=== PATIENT | male | born 1985 | race Caucasian/White ===

== ENCOUNTER 2023-02-20 09:29 | Outpatient (CLI) | payer OTHER ==
--- NOTE | 2023-02-20 10:34 | SLEEP CARE CONSULTATION ---
Information from patient questionnaire entered by Maury Ross. I have reviewed and concur with the information entered by Maury Ross. This document represents the service I personally performed and the decisions made by me, Laurie Posada ARNP. History of Present Illness Service Date and Time: 02/20/2023928 Reason for Visit: New patient Chief Complaint: reports: Insomnia, Unrefreshed sleep, Excessive daytime sleepiness Date of Onset: 2018 Usual bedtime: 2230 Time it takes to fall asleep: 2-3HRS Snores at night: Yes Observed to quit breathing while asleep: No Sleeps alone due to snoring: No Number of times waking at night: 2-3 Reasons for waking at night: reports: Snoring, Other (UNKNOWN). denies: Choking, Gasping for air Toss, Turn, or Twitch while sleeping: Yes Recalls having dreams: No (remembers 1-2 dreams a year) Usually gets out of bed at: [id number] Feels refreshed in the morning: No Morning headache: No Sleepy or fatigued during the day: Yes Ever fallen asleep while driving: No Takes day naps: Yes (varies; 1-2 times a week for 30 minutes to 2 hours) Dreams during day naps: No Prior sleep studies: No Additional HPI information: I had the pleasure of seeing CLARISSA FLETCHER today regarding the possibility of him having a sleep disorder. His current complaints are excessive daytime sleepiness, insomnia and unrefreshed sleep. He states that he has not slept well for years. He has a hard time falling asleep, staying asleep during the night and he wakes up feeling tired. He states sometimes he can go back to sleep after a wakeup quickly, other times it takes about 30 minutes to an hour. - Parasomnia Symptoms Ever been unable to move upon waking from sleep: No Walks in sleep: No Talks in sleep: Yes Ever acted out dreams in sleep: Yes (occasional; has hit out and hit ; woke up punching something on deploym) Ever felt weak in the knees when startled or emotional: No Bothered by creepy, crawly, restless sensations in legs: No Problems with memory or concentration: No Subjective Initial [place] Sleepiness Scale score: 16 (02/20/23) Past Medical History Past Medical History: reports: Anxiety, Depression Social History The patient's occupation is a AM. Patient is and lives in [place]. Have you smoked in the past 12 months: Yes Cigarettes per day (20/pack): 2 Years of smokin Quit date: 07/2022 Smoking Pack Years: 1.9 Alcohol use: Yes Alcohol amount and frequency: 1-2 OCASSIONALLY Caffeine use: Yes Caffeine amount and frequency: 2 "Yeti" cups DAILY Family History Family history of sleep disordered breathing: Yes Family Hx Sleep Apnea: Mother: Snoring, Grandparent: Snoring Allergies and Home Medications Known drug allergies: No Drug allergies reviewed: Yes Home medication list reviewed: Yes Allergy and home medication list: Medications: Escitalopram 30 mg daily Bupropion 300 mg daily Trazodone 100 mg, prn Hydroxyzine 25 mg up to 4 x daily, prn panic attacks Ibuprofen, prn Review of Systems Weight gain over past 5 years: 20 Cardiovascular: denies: high blood pressure Gastrointestinal: denies: heartburn Neurological: denies: headaches Psychiatric: reports: anxiety, depression Ear/Nose/Throat: reports: nasal congestion, sinus problems, wisdom teeth removed. denies: tonsillectomy Endocrine: reports: sluggishness, excessive thirst Musculoskeletal: reports: joint pain, neck pain, back pain, muscle pain or cramping Immunologic: reports: sneezing, allergies to food or environment Physical Exam Vital signs obtained and entered by: MAURY Bullock MA Blood Pressure: 118/64 (LEFT ARM) Cuff size: regular Heart Rate: 77 O2 Saturation: 98 Height: 5 ft 10 in Weight: 225 lb 9.6 oz Body Mass Index: 32.3 BMI Classification: Obese Neck circumference: 16.5 Mouth and throat: narrow oropharynx Soft palate: long Hard palate: normal Uvula: normal Uvula visualization: 25% Mallampati Class III Tongue: normal in size Tonsils: 1+ Neck: normal w/o lymphadenopathy or thyromegaly Heart: regular rate and rhythm Lungs: clear bilaterally Impression and Plan 1. Suspected Obstructive Sleep Apnea-Hypopnea Syndrome, as suggested by a history of loud and irregular snoring, frequent awakening during the night, unrefreshed sleep, and excessive daytime sleepiness. Narrow oropharynx and obesity are common predisposing factors for obstructive sleep apnea-hypopnea syndrome. I recommend proceeding to polysomnography to confirm the diagnosis and to assess severity. If the patient has significant sleep disordered breathing, a manual CPAP titration study will also be performed to find the optimal treatment pressure. I informed the patient of what the sleep studies involve and after some discussion, obtained agreement to proceed. The pathophysiology of obstructive sleep apnea-hypopnea syndrome was discussed with the patient and health risks of cardiovascular and cerebrovascular disease if not treated. Risks of drowsy driving discussed in detail and patient advised to avoid long distance driving and to side puller at the first sign of drowsiness. Patient agreed to plan. * Schedule polysomnography +- manual CPAP titration study and return in 1-2 weeks after the study to discuss result and initiate therapy. * Avoid long distance driving or driving when feeling sleepy. * Avoid alcohol, sedative and muscle relaxant around bedtime. * Attempt to lose weight. * Review instructions provided by trained office staff on how to prepare for the sleep study. * Return for follow-up after sleep study completed. Counseling Topics: Weight loss health impact Visit Type: In Office Time Spent with Patient (minutes): 34 Provider Statement: I spent 100% of the Face to Face Visit with the patient with greater than 50% spent counseling the patient and coordination of care.
[2023-02-20 10:36] VITALS: BP 118/64
== END 2023-02-20 09:30 | disposition home or self-care (01) ==
LOC: SC 09:29
PROVIDERS: ATTEND Nurse Practitioner Family
DX: R06.83 Snoring (principal); G47.8 Other sleep disorders; G47.10 Hypersomnia, unspecified; Z87.891 Personal history of nicotine dependence; E66.9 Obesity, unspecified; Z68.32 Body mass index [BMI] 32.0-32.9, adult
CPT/HCPCS: 99203; 99212

== ENCOUNTER 2023-04-11 19:36 | Outpatient (CLI) | payer OTHER | END 2023-04-11 19:37 | disposition home or self-care (01) | LOC: SC 19:36 | PROVIDERS: ATTEND Nurse Practitioner Family | DX: G47.31 Primary central sleep apnea (principal) | CPT/HCPCS: 95810 ==

== ENCOUNTER 2023-05-07 14:08 | Outpatient (CLI) | payer OTHER ==
--- NOTE | 2023-05-07 14:47 | Sleep Patient Instructions ---
Sleep Center Visit Summary - Patient Visit Information Reason for Visit: Sleep study follow-up - Patient Instructions Additional Instructions: You will be completing a titration sleep study in our sleep lab where you will be sleeping with the CPAP machine on and we will be adjusting your pressures to find your optimal pressure settings. Once we have your results back, we will call you and schedule a follow up to go over the results. You will be called by our office staff to schedule your follow up, but you may contact us with any questions or issue as needed. - Clinic Information Contact: [facility] [address] [place] [address] [email or web address] T: [phone]
--- NOTE | 2023-05-07 14:55 | SLEEP CARE CONSULTATION ---
Information from patient questionnaire entered by Nena Ross. I have reviewed and concur with the information entered by Nena Ross. This document represents the service I personally performed and the decisions made by , Laurie Posada ARNP. History of Present Illness Service Date and Time: 05/07/2023 1408 Initial [place] Sleepiness Scale score: 16 (02/20/23) Current [place] Sleepiness Scale score: 8 (05/07/23) Additional HPI information: CLARISSA FLETCHER returns for follow up and results of the recently performed polysomnography. His sleep study showed moderate central sleep apnea with an average AHI of 26.1 and juventino oxygen saturation of 87%. I explained the pathophysiology behind obstructive sleep apnea. We then spent quite a bit of time discussing different treatment options. For mild obstructive sleep apnea, surgery and oral appliance are alternatives to nasal CPAP therapy but in moderate or severe cases, nasal CPAP is the most effective and reliable treatment. Patient counseled not drink alcohol less than 4 hours before bedtime as it can increase snoring and apnea. Patient was cautioned about risks of drowsy driving until sleepiness symptoms resolve. Patient denies drowsy driving. Sleep Study - Results Type of Sleep Study: Polysomnography (COMPLETED 04/11/23) Prior sleep studies: No Polysomnography/Home Sleep Study results: IMPRESSION: The quality of the study is good. The patient had slightly reduced sleep efficiency. The sleep architecture was abnormal for sleep fragmentation and lack of REM sleep. Respiratory monitoring showed moderate central sleep apnea-hypopnea (AHI = 26.1) associated with frequent arousals, oxyhemoglobin desaturation and mild hypoxia (juventino oxygen saturation of 87%). The respiratory events occurred predominantly during supine sleep (supine AHI = 42.6; non-supine = 17.57). Snore was light to moderate in intensity. There was no significant periodic leg movement of sleep. Cardiac rhythm was normal sinus rhythm without significant arrhythmia. No abnormal behavior (parasomnia) observed during the night. Allergies and Home Medications Known drug allergies: No Drug allergies reviewed: Yes Home medication list reviewed: Yes (no changes) Allergy and home medication list: Allergies No Known Drug Allergies Allergy (Verified 05/03/23 10:00) Review of Systems Review of systems same as previous: Yes (no changes) Physical Exam Vital signs obtained and entered by: NENA Bullock MA Blood Pressure: 110/70 (LEFT ARM) Cuff size: regular Heart Rate: 90 O2 Saturation: 99 Height: 5 ft 10 in Weight: 223 lb Body Mass Index: 32.0 BMI Classification: Obese Impression and Plan 1. Central Sleep Apnea-Hypopnea Syndrome, moderate, with lowest oxygen saturation of 87%. Obviously this is the cause of the patients symptoms of unrefreshed sleep, and excessive daytime sleepiness. Positive pressure therapy could benefit anxiety and depression. As mentioned above, the patient will return for a manual titration study to find optimal treatment pressure. Compliance guidelines also reviewed. A copy of compliance guidelines will be given for reference at check out. Because the apnea is more severe supine, I instructed to avoid sleeping supine using pillow positioning until able to start CPAP use. 2. Hypoxemia, mild, with a juventino oxygen saturation of 87% and 0.2 minutes spent under 90%. His baseline oxygen saturation was normal with an average oxygen saturation of 94%. * Titration study * Attempt to lose weight. * Avoid alcohol consumption near bedtime. * Avoid supine sleep * The patient is again cautioned about driving until sleepiness completely resolves. * Return after titration study is completed. Counseling Topics: Weight loss health impact Plan: Titration study for CSA Visit Type: In Office Time Spent with Patient (minutes): 20 Provider Statement: I spent 100% of the Face to Face Visit with the patient with greater than 50% spent counseling the patient and coordination of care.
[2023-05-07 14:58] VITALS: BP 110/70; O2SAT 99
== END 2023-05-07 14:09 | disposition home or self-care (01) ==
LOC: SC 14:08
PROVIDERS: ATTEND Nurse Practitioner Family
DX: G47.31 Primary central sleep apnea (principal); R09.02 Hypoxemia
CPT/HCPCS: 99212; 99213

== ENCOUNTER 2023-05-08 20:38 | Outpatient (CLI) | payer OTHER | END 2023-05-08 20:39 | disposition home or self-care (01) | LOC: SC 20:38 | PROVIDERS: ATTEND Nurse Practitioner Family | DX: G47.33 Obstructive sleep apnea (adult) (pediatric) (principal); Z68.32 Body mass index [BMI] 32.0-32.9, adult | CPT/HCPCS: 95811 ==

== ENCOUNTER 2023-05-16 08:22 | Outpatient (CLI) | payer OTHER ==
--- NOTE | 2023-05-16 08:46 | Sleep Patient Instructions ---
Sleep Center Visit Summary - Patient Visit Information Reason for Visit: Titration study follow-up - Patient Instructions Instructions Attached: CPAP Dc, CPAP Additional Instructions: You are being started on CPAP therapy with pressure setting at 5-10 cmH2O. You will need to call the sleep care office to set up your follow up once you have your APAP machine and we will schedule a visit to check compliance and response to therapy at that time. You may call the office with any concerns about pressure feeling too low or too much for adjustment, if needed. You should contact DME supplier for any questions or concerns about mask or equipment. Please call office to schedule a follow up appointment in the sleep care office one month after obtaining new device. - Clinic Information Contact: [facility] [address] [place] [address] [email or web address] T: [phone]
--- NOTE | 2023-05-16 08:48 | SLEEP CARE CONSULTATION ---
Information from patient questionnaire entered by Maury Ross. I have reviewed and concur with the information entered by Maury Ross. This document represents the service I personally performed and the decisions made by , Laurie Posada ARNP. History of Present Illness Service Date and Time: 05/16/2023 08 Initial [place] Sleepiness Scale score: 16 (02/20/23) Current [place] Sleepiness Scale score: 11 (05/16/23) Additional HPI information: CLARISSA FLETCHER returns for follow up of the sleep study with a manual CPAP titration study performed on 05/08/2023. The patient was informed of the following polysomnography findings: CPAP was initiated at 5 cmH2O and titrated up to CPAP at 14 cmH2O. CPAP at 8 cmH2O appeared to be optimal (AHI of 0 per hour on the pressure). There was supine REM sleep on the pressure. Oxygen saturation was normal throughout the night. Lower CPAP settings appeared adequate as well. The patient appeared to have tolerated positive airway pressure therapy fairly well. Sleep Study - Results Type of Sleep Study: Polysomnography (COMPLETED 04/11/23 TITRATION STUDY 05/08/23) Prior sleep studies: No Polysomnography/Home Sleep Study results: IMPRESSION: The quality of the study is good. CPAP was initiated at 5 cmH2O and titrated up to CPAP at 14 cmH2O. CPAP at 8 cmH2O appeared to be optimal (AHI of 0 per hour on the pressure). There was supine REM sleep on the pressure. Oxygen saturation was normal throughout the night. Lower CPAP settings appeared adequate as well. The patient appeared to have tolerated positive airway pressure therapy fairly well. The patients sleep efficiency was slightly reduced due to a prolonged awakening in the middle of the night. The sleep architecture was normal. There was no periodic leg movement of sleep. Cardiac rhythm was normal sinus rhythm without significant arrhythmia. No abnormal behavior (parasomnia) observed during the night. Allergies and Home Medications Known drug allergies: No Drug allergies reviewed: Yes Home medication list reviewed: Yes (no changes) Allergy and home medication list: Allergies No Known Drug Allergies Allergy (Verified 05/07/23 14:17) Review of Systems Review of systems same as previous: Yes (no changes) Physical Exam Vital signs obtained and entered by: MAURY Bullock MA Blood Pressure: 128/70 (LEFT ARM) Cuff size: regular Heart Rate: 77 O2 Saturation: 98 Height: 5 ft 10 in Weight: 224 lb 6.4 oz Body Mass Index: 32.1 BMI Classification: Obese Impression and Plan 1. Central Sleep Apnea-Hypopnea Syndrome, moderate. He returns to the office after completing titration study which showed optimal pressure to control his sleep apnea was 8 cmH2O. It was also noted that he tolerated the CPAP pressure well. Positive airway pressure can benefit his anxiety and depression. The patient will be started on nasal autoCPAP therapy with pressure set at 5-10 cmH2 O. Compliance guidelines also reviewed. A copy of compliance guidelines will be given for reference at check out. Because the apnea is more severe supine, I instructed to avoid sleeping supine using pillow positioning until able to start CPAP use. 2. Obesity, unspecified. Currently patients BMI is 32.1. Obesity increases the risk of apnea, CPAP pressure requirements and overall health risks especially cardiovascular and diabetes. Thus patient is advised to lose weight. * Nasal auto CPAP therapy, pressure at 5-10 cm H2O. * Attempt to lose weight. * Avoid alcohol consumption near bedtime. * Avoid supine sleep until using CPAP. * The patient is again cautioned about driving until sleepiness completely resolves. * Return one month after CPAP obtained. I will assess response to therapy and compliance at that time. Counseling Topics: Weight loss health impact Prescriptions: Auto CPAP Visit Type: In Office Time Spent with Patient (minutes): 15 Provider Statement: I spent 100% of the Face to Face Visit with the patient with greater than 50% spent counseling the patient and coordination of care.
[2023-05-16 08:56] VITALS: BP 128/70; O2SAT 98
== END 2023-05-16 08:23 | disposition home or self-care (01) ==
LOC: SC 08:22
PROVIDERS: ATTEND Nurse Practitioner Family
DX: G47.31 Primary central sleep apnea (principal); E66.9 Obesity, unspecified; Z68.32 Body mass index [BMI] 32.0-32.9, adult
CPT/HCPCS: 99212

== ENCOUNTER 2023-07-05 13:11 | Outpatient (CLI) | payer OTHER ==
--- NOTE | 2023-07-05 13:54 | Sleep Patient Instructions ---
Sleep Center Visit Summary - Patient Visit Information Reason for Visit: First Compliance Followup - Patient Instructions Additional Instructions: You were here for follow up of CPAP therapy. You will be continued on CPAP therapy with pressure at 12-14 cmH2O. Please let us know if the pressure change is uncomfortable and we can make further adjustments of the pressure. You should follow up with sleep care in 1-2 months. You may contact us sooner for any questions or concerns. - Clinic Information Contact: [facility] [address] [place] [id number] [email or web address] T: [phone]
--- NOTE | 2023-07-05 13:57 | SLEEP CARE CONSULTATION ---
Information from patient questionnaire entered by Maury Ross. I have reviewed and concur with the information entered by Maury Ross. This document represents the service I personally performed and the decisions made by , Laurie Posada ARNP. History of Present Illness Service Date and Time: 07/05/2023 1311 Previous diagnosis: Moderate, Central Sleep Apnea-Hypopnea Syndrome AHI: 26.1 (04/2023) Reason for follow up: first compliance Accompanied by: Spouse Equipment type: CPAP (RESMED Airsense 10, s/u 05/2023) Equipment obtained from: Other ([facility]) Mask style: Nasal pillows Mask brand: [employer] ([employer]) Backup mask available: No Last cushion change: last week, rotate between 2 cushions Prior sleep studies: No Type of Sleep Study: Polysomnography (COMPLETED 04/11/23 TITRATION STUDY 05/08/23) HPI additional information: CLARISSA FLETCHER was diagnosed to have moderate, AHI 26.1, central sleep apnea- hypopnea syndrome and returned today for CPAP therapy first compliance follow- up. Sleep Study - Results Type of Sleep Study: Polysomnography (COMPLETED 04/11/23 TITRATION STUDY 05/08/23) Prior sleep studies: No CPAP Compliance Data - Data Reviewed with Patient Average duration of nightly device use: 7 HRS 5 MINS Compliance rate %: 96 (06/04/23-06/27/23; days used) Current pressure setting (cmH2O): 8-14 (avg 11.1, max 11.7) Average residual AHI: 11.9 Central apnea: 10.6 Obstructive apnea: 0.5 Hypopnea: 0.1 Average large leak: 2.3 L/min Subjective Patient concerns: reports: condensation in mask/hose, nasal congestion (occasional, may be seasonal), other (removing mask while sleeping). denies: aerophagia, mask discomfort, air blowing in eyes, mask leak noise, dry mouth, nose, throat, epistaxis Observed to snore while using device: Yes (sometimes) Current pressure setting perceived as: too low (when on his stomach, at beginning of night) On therapy, patient: reports: sleeping better, more rested overall. denies: drowsiness while driving Initial [place] Sleepiness Scale score: 16 (02/20/23) Current [place] Sleepiness Scale score: 13 (11/03/23) Allergies and Home Medications Known drug allergies: No Drug allergies reviewed: Yes Home medication list reviewed: Yes (no changes) Allergy and home medication list: Allergies No Known Drug Allergies Allergy (Verified 07/04/23 13:25) Review of Systems Review of systems same as previous: Yes (NO CHANGE) Physical Exam Vital signs obtained and entered by: MAURY Bullock MA Blood Pressure: 142/90 (LEFT ARM) Cuff size: regular Heart Rate: 99 O2 Saturation: 99 Height: 5 ft 10 in Weight: 226 lb 3.2 oz Body Mass Index: 32.4 BMI Classification: Obese Impression and Plan 1. Central Sleep Apnea-Hypopnea Syndrome, moderate, with good treatment compliance and fair apnea control. On CPAP therapy, the patient has better sleep quality and is more rested overall. His pressure should have been changed at his last visit but it is at a different pressure than prescribed. The patients pressure will be changed to autoCPAP 12-14 cmH20 for elevation of residual AHI. Patient advised to contact me if pressure change is uncomfortable so that it can be adjusted. Goals for apnea control discussed. Patient's apnea severity and rationale for treatment to reduce apnea, improve sleep quality and reduce cardiovascular and cerebrovascular events was reviewed. 2. Obesity, unspecified. Currently patients BMI is 32.4. Obesity increases the risk of apnea, CPAP pressure requirements and overall health risks especially cardiovascular and diabetes. Thus patient is advised to lose weight. * Change auto CPAP pressure to 12-14 cmH2O * Notify me if snoring with mask or feeling that the pressure is too much or too little * Attempt to lose weight * Call this office if any problems using CPAP * Return for follow up in 1-2 months, or sooner if concerns arise Counseling Topics: Spare mask, Weight loss health impact Follow up with Sleep Care in: 1-2 months Visit Type: In Office Time Spent with Patient (minutes): 36 Provider Statement: I spent 100% of the Face to Face Visit with the patient with greater than 50% spent counseling the patient and coordination of care.
[2023-07-05 13:58] VITALS: BP 142/90; O2SAT 99
== END 2023-07-05 13:12 | disposition home or self-care (01) ==
LOC: SC 13:11
PROVIDERS: ATTEND Nurse Practitioner Family
DX: G47.31 Primary central sleep apnea (principal); E66.9 Obesity, unspecified; Z68.32 Body mass index [BMI] 32.0-32.9, adult
CPT/HCPCS: 99212; 99214

== ENCOUNTER 2023-08-15 13:54 | Outpatient (CLI) | payer OTHER ==
--- NOTE | 2023-08-15 14:20 | Sleep Patient Instructions ---
Sleep Center Visit Summary - Patient Visit Information Reason for Visit: 1 month followup - Patient Instructions Additional Instructions: You were here for follow up of CPAP therapy. You will be continued on CPAP therapy with pressure at 8-10 cmH2O. Please let us know if the pressure change is uncomfortable and we can make further adjustments of the pressure. You should follow up with sleep care in 1-2 months. You may contact us sooner for any questions or concerns. - Clinic Information Contact: [facility] [address] [place] [id number] [email or web address] T: [phone]
--- NOTE | 2023-08-15 14:32 | SLEEP CARE CONSULTATION ---
Information from patient questionnaire entered by Maury Ross. I have reviewed and concur with the information entered by Maury Ross. This document represents the service I personally performed and the decisions made by , Laurie Posada ARNP. History of Present Illness Service Date and Time: 08/15/2023 1354 Previous diagnosis: Moderate, Central Sleep Apnea-Hypopnea Syndrome AHI: 26.1 (04/2023) Reason for follow up: one month (F/U) Equipment type: CPAP (RESMED Airsense 10, s/u 05/2023) Equipment obtained from: Other ([facility]; getting supplies) Mask style: Nasal pillows Mask brand: [employer] (Brevida, small cushion) Backup mask available: No Prior sleep studies: No Type of Sleep Study: Polysomnography (COMPLETED 04/11/23 TITRATION STUDY 05/08/23) HPI additional information: CLARISSA FLETCHER was diagnosed to have moderate, AHI 26.1, central sleep apnea- hypopnea syndrome and returned today for CPAP therapy one month follow-up. Sleep Study - Results Type of Sleep Study: Polysomnography (COMPLETED 04/11/23 TITRATION STUDY 05/08/23) Prior sleep studies: No CPAP Compliance Data - Data Reviewed with Patient Average duration of nightly device use: 8 HRS 0 MINS Compliance rate %: 97 (07/14/23-08/12/23; 30/30 days used) Current pressure setting (cmH2O): 12-14 (avg 12.9, max 13.3) Average residual AHI: 16.3 Central apnea: 14.2 Obstructive apnea: 0.5 Hypopnea: 0.3 Average large leak: 5.2 L/min Subjective Patient concerns: reports: mask leak noise, condensation in mask/hose, nasal congestion, other (headache, not just with CPAP). denies: aerophagia, mask discomfort, air blowing in eyes, dry mouth, nose, throat, epistaxis Observed to snore while using device: No Current pressure setting perceived as: comfortable On therapy, patient: reports: sleeping better (sometimes), more rested overall (sometimes). denies: drowsiness while driving Initial [place] Sleepiness Scale score: 16 (02/20/23) Current [place] Sleepiness Scale score: 13 (08/15/23) Allergies and Home Medications Known drug allergies: No Drug allergies reviewed: Yes Home medication list reviewed: Yes (no changes) Allergy and home medication list: Allergies No Known Drug Allergies Allergy (Verified 08/14/23 10:33) Review of Systems Review of systems same as previous: Yes (no changes) Physical Exam Vital signs obtained and entered by: MAURY Bullock MA Blood Pressure: 134/71 (LEFT ARM) Cuff size: regular Heart Rate: 107 O2 Saturation: 97 Height: 5 ft 10 in Weight: 231 lb 6.4 oz Body Mass Index: 33.2 BMI Classification: Obese Impression and Plan 1. Central Sleep Apnea-Hypopnea Syndrome, moderate, with good treatment compliance and fair apnea control. On CPAP therapy, the patient has better sleep quality and is more rested overall. He says his mask will leak where the mask hose connects to the tubing. I supplied him with a Nuance Pro nasal pillows mask to try. His AHI is improved but he is still having a high central index. The patients pressure will be changed to autoCPAP 8-10 cmH20 for elevation of residual AHI. Patient advised to contact me if pressure change is uncomfortable so that it can be adjusted. Goals for apnea control discussed. Patient's apnea severity and rationale for treatment to reduce apnea, improve sleep quality and reduce cardiovascular and cerebrovascular events was reviewed. 2. Obesity, unspecified. Currently patients BMI is 33.2. Obesity increases the risk of apnea, CPAP pressure requirements and overall health risks especially cardiovascular and diabetes. Thus patient is advised to lose weight. * Change auto CPAP pressure to 8-10 cmH2O * Notify me if snoring with mask or feeling that the pressure is too much or too little * Attempt to lose weight * Call this office if any problems using CPAP * Return for follow up in 1-2 months, or sooner if concerns arise Counseling Topics: Spare mask, Weight loss health impact Follow up with Sleep Care in: 1-2 months Visit Type: In Office Time Spent with Patient (minutes): 21 Provider Statement: I spent 100% of the Face to Face Visit with the patient with greater than 50% spent counseling the patient and coordination of care.
[2023-08-15 14:38] VITALS: BP 134/71; O2SAT 97
== END 2023-08-15 13:55 | disposition home or self-care (01) ==
LOC: SC 13:54
PROVIDERS: ATTEND Nurse Practitioner Family
DX: G47.31 Primary central sleep apnea (principal); E66.9 Obesity, unspecified; Z68.33 Body mass index [BMI] 33.0-33.9, adult
CPT/HCPCS: 99212; 99213

== ENCOUNTER 2023-09-24 13:55 | Outpatient (CLI) | payer OTHER ==
--- NOTE | 2023-09-24 14:23 | Sleep Patient Instructions ---
Sleep Center Visit Summary - Patient Visit Information Reason for Visit: 1 month follow-up for PAP therapy - Patient Instructions Additional Instructions: You were here for follow up of CPAP therapy. You will be continued on CPAP therapy with pressure at 8 cmH2O. Please let us know if the pressure change is uncomfortable and we can make further adjustments of the pressure. You should follow up with sleep care in 3 months. You may contact us sooner for any questions or concerns. - Clinic Information Contact: [facility] [address] [place] [id number] [email or web address] T: [phone]
--- NOTE | 2023-09-24 14:27 | SLEEP CARE CONSULTATION ---
Information from patient questionnaire entered by Maury Ross. I have reviewed and concur with the information entered by Maury Ross. This document represents the service I personally performed and the decisions made by me, Laurie Posada ARNP. History of Present Illness Service Date and Time: 09/24/2023 1355 Previous diagnosis: Moderate, Central Sleep Apnea-Hypopnea Syndrome AHI: 26.1 (04/2023) Reason for follow up: one month (F/U) Equipment type: CPAP (RESMED Airsense 10, s/u 05/2023) Equipment obtained from: Other ([facility]; [employer]) Mask style: Nasal pillows Mask brand: [employer] (Brevida, ex sm/small cushion) Backup mask available: Yes (other mask) Last cushion change: Saturday, rotating thru 2 cushions Prior sleep studies: No Type of Sleep Study: Polysomnography (COMPLETED 04/11/23 TITRATION STUDY 05/08/23) HPI additional information: CLARISSA FLETCHER was diagnosed to have moderate, AHI 26.1, central sleep apnea- hypopnea syndrome and returned today for CPAP therapy one month with pressure change follow-up. Sleep Study - Results Type of Sleep Study: Polysomnography (COMPLETED 04/11/23 TITRATION STUDY 0 05/08/23) Prior sleep studies: No CPAP Compliance Data - Data Reviewed with Patient Average duration of nightly device use: 6 HRS 38 MINS Compliance rate %: 93 (08/21/23-09/19/23; 30/30 days used) Current pressure setting (cmH2O): 8-10 (avg 9.7, max 9.9) Average residual AHI: 9.9 Central apnea: 8.1 Obstructive apnea: 0.8 Average large leak: 2.8 L/min Subjective Patient concerns: reports: nasal congestion (for past 2 weeks, but improved), other (headaches when he sleeps longer). denies: aerophagia, mask discomfort, air blowing in eyes, mask leak noise, condensation in mask/hose, dry mouth, nose, throat, epistaxis Observed to snore while using device: No Current pressure setting perceived as: comfortable On therapy, patient: reports: sleeping better, awakening more refreshed, being more awake and alert during the day, more rested overall. denies: drowsiness while driving Initial [place] Sleepiness Scale score: 16 (02/20/23) Current [place] Sleepiness Scale score: 9 (09/24/23) Allergies and Home Medications Known drug allergies: No Drug allergies reviewed: Yes Home medication list reviewed: Yes (no changes) Allergy and home medication list: Allergies No Known Drug Allergies Allergy (Verified 09/20/23 15:49) Review of Systems Review of systems same as previous: Yes (NO CHANGE) Physical Exam Vital signs obtained and entered by: MAURY Bullock MA Blood Pressure: 132/82 (LEFT ARM) Cuff size: regular Heart Rate: 88 O2 Saturation: 99 Height: 5 ft 10 in Weight: 234 lb 12.8 oz Body Mass Index: 33.7 BMI Classification: Obese Impression and Plan 1. Central Sleep Apnea-Hypopnea Syndrome, moderate, with good treatment compliance and fair apnea control with elevated residual AHI. On CPAP therapy, the patient has better sleep quality and is more rested overall. He does have significant improvement of his sleep apnea although current pressure setting is slightly ineffective. He continues with elevated central index at 8.1 today which is reduced from his last appointment. The patients pressure will be changed to CPAP 8 cmH20 for elevation of residual AHI. Patient advised to contact me if pressure change is uncomfortable so that it can be adjusted. Goals for apnea control discussed. Patient's apnea severity and rationale for treatment to reduce apnea, improve sleep quality and reduce cardiovascular and cerebrovascular events was reviewed. 2. Obesity, unspecified. Currently patients BMI is 33.7. Obesity increases the risk of apnea, CPAP pressure requirements and overall health risks especially cardiovascular and diabetes. Thus patient is advised to lose weight. * Change CPAP pressure to 8 cmH2O * Notify me if snoring with mask or feeling that the pressure is too much or too little * Attempt to lose weight * Call this office if any problems using CPAP * Return for follow up in 3 months, or sooner if concerns arise Counseling Topics: Spare mask, Weight loss health impact Follow up with Sleep Care in: 3 months Visit Type: In Office Time Spent with Patient (minutes): 20 Provider Statement: I spent 100% of the Face to Face Visit with the patient with greater than 50% spent counseling the patient and coordination of care.
[2023-09-24 14:29] VITALS: BP 132/82; O2SAT 99
== END 2023-09-24 13:56 | disposition home or self-care (01) ==
LOC: SC 13:55
PROVIDERS: ATTEND Nurse Practitioner Family
DX: G47.31 Primary central sleep apnea (principal); E66.9 Obesity, unspecified; Z68.33 Body mass index [BMI] 33.0-33.9, adult
CPT/HCPCS: 99212; 99213

== ENCOUNTER 2023-12-18 12:45 | Outpatient (CLI) | payer OTHER ==
--- NOTE | 2023-12-18 13:08 | Sleep Patient Instructions ---
Sleep Center Visit Summary - Patient Visit Information Reason for Visit: 3-month follow-up - Patient Instructions Additional Instructions: You were here for follow up of CPAP therapy. You will be continued on CPAP therapy with pressure at 5-8 cmH2O. Please let us know if the pressure change is uncomfortable and we can make further adjustments of the pressure. You should follow up with sleep care in 1-2 months. You may contact us sooner for any questions or concerns. - Clinic Information Contact: [facility] [address] [place] [address] [email or web address] T: [phone]
--- NOTE | 2023-12-18 13:13 | SLEEP CARE CONSULTATION ---
Information from patient questionnaire entered by Maury Ross. I have reviewed and concur with the information entered by Maury Ross. This document represents the service I personally performed and the decisions made by , Laurie Posada ARNP. History of Present Illness Service Date and Time: 12/18/2023 1245 Previous diagnosis: Moderate, Central Sleep Apnea-Hypopnea Syndrome AHI: 26.1 (04/2023) Reason for follow up: three month Equipment type: CPAP (RESMED Airsense 10, s/u 05/2023) Equipment obtained from: Other ([facility] [employer]; [employer]) Mask style: Nasal pillows Mask brand: [employer] (Brevida) Backup mask available: Yes Last cushion change: every Saturday Prior sleep studies: No Type of Sleep Study: Polysomnography (COMPLETED 04/11/23 TITRATION STUDY 05/08/23) HPI additional information: CLARISSA FLETCHER was diagnosed to have moderate, AHI 26.1, central sleep apnea- hypopnea syndrome and returned today for CPAP therapy three month follow-up. Sleep Study - Results Type of Sleep Study: Polysomnography (COMPLETED 04/11/23 TITRATION STUDY 05/08/23) Prior sleep studies: No CPAP Compliance Data - Data Reviewed with Patient Average duration of nightly device use: 6 HRS 57 MINS Compliance rate %: 94 (09/24/23-12/15/23; 81/83 days used) Current pressure setting (cmH2O): 8 Average residual AHI: 10.7 Central apnea: 9 Obstructive apnea: 0.7 Hypopnea: 0.2 Average large leak: 3.6 Subjective Missed days of use due to: reports: travel Patient concerns: denies: aerophagia, mask discomfort, air blowing in eyes, mask leak noise, condensation in mask/hose, nasal congestion, dry mouth, nose, throat, epistaxis Observed to snore while using device: No Current pressure setting perceived as: comfortable (but can vary betw too high or low) On therapy, patient: reports: sleeping better, awakening more refreshed, being more awake and alert during the day, more rested overall. denies: drowsiness while driving Initial [place] Sleepiness Scale score: 16 (02/20/23) Current [place] Sleepiness Scale score: 11 (12/18/23) Allergies and Home Medications Known drug allergies: No Drug allergies reviewed: Yes Home medication list reviewed: Yes (no changes) Allergy and home medication list: Allergies No Known Drug Allergies Allergy (Verified 12/16/23 10:04) Review of Systems Review of systems same as previous: Yes (NO CHANGE) Physical Exam Vital signs obtained and entered by: MAURY Bullock MA Blood Pressure: 134/85 (LEFT ARM) Cuff size: regular Heart Rate: 95 O2 Saturation: 99 Height: 5 ft 10 in Weight: 227 lb 3.2 oz Body Mass Index: 32.5 BMI Classification: Obese Impression and Plan 1. Central Sleep Apnea-Hypopnea Syndrome, moderate, with good treatment compliance and fair apnea control with mildly elevated residual AHI. He main elevation is of the central index at 9. On CPAP therapy, the patient has better sleep quality and is more rested overall. He states that he sees his AHI go way up 1 night and the next night it is down. He sometimes feels like the pressure is too much, other times to go and also comfortable. He does feel a difference with using the CPAP but his AHI is still elevated. The patients pressure will be changed to autoCPAP 5-8 cmH20 for elevation of residual AHI. Patient advised to contact me if pressure change is uncomfortable so that it can be adjusted. Goals for apnea control discussed. Patient's apnea severity and rationale for treatment to reduce apnea, improve sleep quality and reduce cardiovascular and cerebrovascular events was reviewed. 2. Obesity, unspecified. Currently patients BMI is 32.5. Obesity increases the risk of apnea, CPAP pressure requirements and overall health risks especially cardiovascular and diabetes. Thus patient is advised to lose weight. * Change auto CPAP pressure to 5-8 cmH2O * Notify me if snoring with mask or feeling that the pressure is too much or too little * Attempt to lose weight * Call this office if any problems using CPAP * Return for follow up in 1-2 months, or sooner if concerns arise Counseling Topics: Spare mask, Weight loss health impact Follow up with Sleep Care in: 1-2 months Visit Type: In Office Time Spent with Patient (minutes): 20 Provider Statement: I spent 100% of the Face to Face Visit with the patient with greater than 50% spent counseling the patient and coordination of care.
[2023-12-18 13:27] VITALS: BP 134/85; O2SAT 99
== END 2023-12-18 12:46 | disposition home or self-care (01) ==
LOC: SC 12:45
PROVIDERS: ATTEND Nurse Practitioner Family
DX: G47.31 Primary central sleep apnea (principal); E66.9 Obesity, unspecified; Z68.32 Body mass index [BMI] 32.0-32.9, adult
CPT/HCPCS: 99212; 99213

== ENCOUNTER 2024-01-29 11:05 | Outpatient (CLI) | payer OTHER ==
--- NOTE | 2024-01-29 11:35 | Sleep Patient Instructions ---
Sleep Center Visit Summary - Patient Visit Information Reason for Visit: 6-week follow-up with pressure change - Patient Instructions Additional Instructions: You were here for follow up of CPAP therapy. You will be continued on CPAP therapy with pressure at 5-10 cmH2O. Please let us know if the pressure change is uncomfortable and we can make further adjustments of the pressure. You should follow up with sleep care in 3 months. You may contact us sooner for any questions or concerns. - Clinic Information Contact: [facility] [address] [place] [address] [email or web address] T: [phone]
--- NOTE | 2024-01-29 11:38 | SLEEP CARE CONSULTATION ---
Information from patient questionnaire entered by Maury Ross. I have reviewed and concur with the information entered by Maury Ross. This document represents the service I personally performed and the decisions made by , Laurie Posada ARNP. History of Present Illness Service Date and Time: 01/29/2024 1105 Previous diagnosis: Moderate, Central Sleep Apnea-Hypopnea Syndrome AHI: 26.1 (04/2023) Reason for follow up: one month (F/U) Equipment type: CPAP (RESMED Airsense 10, s/u 05/2023) Equipment obtained from: Other ([facility] [employer]; [employer]) Mask style: Nasal pillows Mask brand: [employer] (Brevida) Backup mask available: Yes Last cushion change: last week Prior sleep studies: No Type of Sleep Study: Polysomnography (COMPLETED 04/11/23 TITRATION STUDY 05/08/23) HPI additional information: CLARISSA FLETCHER was diagnosed to have moderate, AHI 26.1, central sleep apnea- hypopnea syndrome and returned today for CPAP therapy six week with pressure change follow-up. Sleep Study - Results Type of Sleep Study: Polysomnography (COMPLETED 04/11/23 TITRATION STUDY 05/08/23) Prior sleep studies: No CPAP Compliance Data - Data Reviewed with Patient Average duration of nightly device use: 5 HRS 8 MINS Compliance rate %: 67 (12/18/23-01/22/24; 35/36 days used) Current pressure setting (cmH2O): 5-8 Average residual AHI: 9.0 (unknown 3) Central apnea: 4.6 Obstructive apnea: 1.2 Hypopnea: 0.1 Average large leak: 3.6 L/min Subjective Patient concerns: denies: aerophagia, mask discomfort, air blowing in eyes, mask leak noise, condensation in mask/hose, nasal congestion, dry mouth, nose, throat, epistaxis Observed to snore while using device: No Current pressure setting perceived as: too low (was good but then felt too low) On therapy, patient: reports: other (still not as refreshed in morning and more rested overall). denies: drowsiness while driving Initial [place] Sleepiness Scale score: 16 (02/20/23) Current [place] Sleepiness Scale score: 12 (01/29/24) Allergies and Home Medications Known drug allergies: No Drug allergies reviewed: Yes Home medication list reviewed: Yes (no changes) Allergy and home medication list: Allergies No Known Drug Allergies Allergy (Verified 01/23/24 11:41) Review of Systems Review of systems same as previous: Yes (NO CHANGE) Physical Exam Vital signs obtained and entered by: MAURY Bullock MA Blood Pressure: 129/90 (RIGHT ARM) Cuff size: long Heart Rate: 91 O2 Saturation: 97 Height: 5 ft 10 in Weight: 233 lb 12.8 oz Body Mass Index: 33.5 BMI Classification: Obese Impression and Plan 1. Central Sleep Apnea-Hypopnea Syndrome, moderate, with fair treatment compliance and fair apnea control with elevated residual AHI. On CPAP therapy, the patient has seen glimpses of good sleep but he still does not feel overall rested and like he is sleeping well. His AHI is still elevated with the central index at 4.6, obstructive index at 1.2 and unknown 3. He does feel like the pressure is too low. The patients pressure will be changed to autoCPAP 5-10 cmH20 for elevation of residual AHI. Patient advised to contact me if pressure change is uncomfortable so that it can be adjusted. Goals for apnea control discussed. Patient's apnea severity and rationale for treatment to reduce apnea, improve sleep quality and reduce cardiovascular and cerebrovascular events was reviewed. 2. Obesity, unspecified. Currently patients BMI is 33.5. Obesity increases the risk of apnea, CPAP pressure requirements and overall health risks especially cardiovascular and diabetes. Thus patient is advised to continue to try to lose weight. * Change Auto CPAP pressure to 5-10 cmH2O * Notify me if snoring with mask or feeling that the pressure is too much or too little * Attempt to lose weight * Call this office if any problems using CPAP * Return for follow up in 3 months, or sooner if concerns arise Adjust device pressure to (cmH2O): 5-10 Counseling Topics: Weight loss health impact Follow up with Sleep Care in: 3 months Visit Type: In Office Time Spent with Patient (minutes): 15 Provider Statement: I spent 100% of the Face to Face Visit with the patient with greater than 50% spent counseling the patient and coordination of care.
[2024-01-29 11:48] VITALS: BP 129/90; O2SAT 97
== END 2024-01-29 11:06 | disposition home or self-care (01) ==
LOC: SC 11:05
PROVIDERS: ATTEND Nurse Practitioner Family
DX: G47.31 Primary central sleep apnea (principal); E66.9 Obesity, unspecified; Z68.33 Body mass index [BMI] 33.0-33.9, adult
CPT/HCPCS: 99212

== ENCOUNTER 2024-04-15 09:19 | Outpatient (CLI) | payer OTHER ==
--- NOTE | 2024-04-15 09:21 | Sleep Patient Instructions ---
Sleep Center Visit Summary - Patient Visit Information Reason for Visit: 3-month follow-up - Patient Instructions Additional Instructions: You were here for follow up of CPAP therapy. You will be continued on CPAP therapy with pressure at 4-6 cmH2O. Please let us know if the pressure change is uncomfortable and we can make further adjustments of the pressure. You should follow up with sleep care in 1-2 months. You may contact us sooner for any questions or concerns. - Clinic Information Contact: [facility] [address] [place] [address] [email or web address] T: [phone]
--- NOTE | 2024-04-15 09:27 | SLEEP CARE CONSULTATION ---
Information from patient questionnaire entered by Maury Ross. I have reviewed and concur with the information entered by Maury Ross. This document represents the service I personally performed and the decisions made by , Laurie Posada ARNP. History of Present Illness Service Date and Time: 04/15/2024 0900 Previous diagnosis: Moderate, Central Sleep Apnea-Hypopnea Syndrome AHI: 26.1 (04/2023) Reason for follow up: three month (F/U) Equipment type: CPAP (RESMED Airsense 10, s/u 05/2023) Equipment obtained from: Other ([facility]; [facility]) Mask style: Nasal pillows (Brevida) Backup mask available: Yes Last cushion change: weekly Prior sleep studies: No Type of Sleep Study: Polysomnography (COMPLETED 04/11/23 TITRATION STUDY 05/08/23) HPI additional information: CLARISSA FLETCHER was diagnosed to have moderate, AHI 26.1, central sleep apnea- hypopnea syndrome and returned today for CPAP therapy three month follow-up. Sleep Study - Results Type of Sleep Study: Polysomnography (COMPLETED 04/11/23 TITRATION STUDY 05/08/23) Prior sleep studies: No CPAP Compliance Data - Data Reviewed with Patient Average duration of nightly device use: 6 HRS 42 MINS Compliance rate %: 91 (01/14/24-04/12/24) Current pressure setting (cmH2O): 5-10 (median 5.8, avg 7.7, max 8.5) Average residual AHI: 8.3 Central apnea: 6.1 Obstructive apnea: 0.8 Hypopnea: 0.1 Average large leak: 2.9 L/min Subjective Missed days of use due to: reports: travel Patient concerns: denies: aerophagia, mask discomfort, air blowing in eyes, mask leak noise, condensation in mask/hose, nasal congestion, dry mouth, nose, throat, epistaxis Observed to snore while using device: No Current pressure setting perceived as: too low (sometimes) On therapy, patient: reports: sleeping better (on occasion), awakening more refreshed (occasionally). denies: drowsiness while driving Initial [place] Sleepiness Scale score: 16 (02/20/23) Current [place] Sleepiness Scale score: 14 (04/15/24) Allergies and Home Medications Known drug allergies: No Drug allergies reviewed: Yes Home medication list reviewed: Yes (no changes) Allergy and home medication list: Allergies No Known Drug Allergies Allergy (Verified 04/15/24 08:49) Review of Systems Review of systems same as previous: Yes (no changes) Physical Exam Vital signs obtained and entered by: MAURY Bullock MA Blood Pressure: 130/88 (LEFT ARM) Cuff size: regular Heart Rate: 76 O2 Saturation: 98 Height: 5 ft 10 in Weight: 231 lb 3.2 oz Body Mass Index: 33.1 BMI Classification: Obese Impression and Plan 1. Central Sleep Apnea-Hypopnea Syndrome, moderate, with good treatment compliance and fair apnea control with elevated residual AHI. He occasionally is able to feel like he has a good night of sleep but this varies a lot. He appears to have fewer residual AHI some nights and very high other nights. I discussed with him another pressure change but also to consult with Dr. Chowdhury about his residual central index with CPAP. He may need another titration for BiPAP (ASV possible) to find better control of CSA. The patients pressure will be changed to autoCPAP 4-6 cmH20 for elevation of residual AHI. Patient advised to contact me if pressure change is uncomfortable so that it can be adjusted. Goals for apnea control discussed. Patient's apnea severity and rationale for treatment to reduce apnea, improve sleep quality and reduce cardiovascular and cerebrovascular events was reviewed. 2. Obesity, unspecified. Currently patients BMI is 33.1. Obesity increases the risk of apnea, CPAP pressure requirements and overall health risks especially cardiovascular and diabetes. Thus patient is advised to lose weight. * Change auto CPAP pressure to 4-6 cmH2O * Notify me if snoring with mask or feeling that the pressure is too much or too little * Attempt to lose weight * Call this office if any problems using CPAP * Return for follow up in 1-2 months, or sooner if concerns arise Adjust device pressure to (cmH2O): 4-6 Counseling Topics: Spare mask, Weight loss health impact Follow up with Sleep Care in: 1-2 months Visit Type: In Office Time Spent with Patient (minutes): 21 Provider Statement: I spent 100% of the Face to Face Visit with the patient with greater than 50% spent counseling the patient and coordination of care.
[2024-04-15 09:39] VITALS: BP 130/88; O2SAT 98
== END 2024-04-15 09:20 | disposition home or self-care (01) ==
LOC: SC 09:19
PROVIDERS: ATTEND Nurse Practitioner Family
DX: G47.31 Primary central sleep apnea (principal); E66.9 Obesity, unspecified; Z68.33 Body mass index [BMI] 33.0-33.9, adult
CPT/HCPCS: 99212; 99213

== ENCOUNTER 2024-05-20 19:30 | Outpatient (CLI) | payer OTHER | END 2024-05-20 19:31 | disposition home or self-care (01) | LOC: SC 19:30 | PROVIDERS: ATTEND Nurse Practitioner Family | DX: G47.31 Primary central sleep apnea (principal); G47.33 Obstructive sleep apnea (adult) (pediatric) | CPT/HCPCS: 95811 ==